=== PATIENT | male | born 1990 | race Caucasian/White ===

== ENCOUNTER 2018-12-31 02:44 | Emergency (ER) | payer SELFPAY ==
[~2018-12-31] VITALS: Ht 172.7 cm; Wt 61.4 kg
[2018-12-31] MEDS ORDERED: IBUPROFEN 600 MG TABLET PO ONE (05:45)
[2018-12-31] MEDS ORDERED: PERTUSS(ACELL),DIPH,TET VAC/PF 0.5 ML VIAL IM ONE (06:30)
[2018-12-31] MEDS ORDERED: BACITRACIN 0.9 GM PACKET OINTMENT TP ONE ×2 (06:44→06:45)
[2018-12-31 07:04] VITALS: BP 141/74
== END 2018-12-31 07:16 | disposition home or self-care (01) ==
LOC: EMS 02:48
DX: S62.314A Displaced fracture of base of fourth metacarpal bone, right hand, initial encounter for closed fracture (principal); W51.XXXA Accidental striking against or bumped into by another person, initial encounter; Y93.89 Activity, other specified; Y92.89 Other specified places as the place of occurrence of the external cause; Y99.8 Other external cause status
CPT/HCPCS: 90471; 90715